=== PATIENT | male | born 1985 | race African-American/Black ===

== ENCOUNTER 2020-08-14 02:47 | Emergency (ER) | payer MEDICAID, OTHER ==
[~2020-08-14] VITALS: Ht 180.3 cm; Wt 80.0 kg
[2020-08-14 06:36] VITALS: BP 108/81
== END 2020-08-14 05:20 | disposition home or self-care (01) ==
LOC: ER 02:47
DX: R00.2 Palpitations (principal); F12.10 Cannabis abuse, uncomplicated; J45.909 Unspecified asthma, uncomplicated
CPT/HCPCS: 93005; 99283